=== PATIENT | male | born 1980 | race Caucasian/White ===

== ENCOUNTER 2021-03-05 07:23 | Outpatient (CLI) | payer OTHER ==
[2021-03-05 14:37] LABS: SARS-CoV-2 PCR by NAA Not Detected (NotDetected)
== END 2021-03-05 07:24 | disposition home or self-care (01) ==
LOC: CSHLAB 07:23
PROVIDERS: ATTEND Otolaryngology Otolaryngic Allergy
DX: Z01.818 Encounter for other preprocedural examination (principal); Z20.822 Contact with and (suspected) exposure to COVID-19; G47.33 Obstructive sleep apnea (adult) (pediatric); J30.9 Allergic rhinitis, unspecified
CPT/HCPCS: 87635; 93005; 93010; U0003; U0005

== ENCOUNTER 2021-03-10 06:39 | Day surgery (SDC) | payer OTHER ==
[2021-03-06 14:36] VITALS: BMI 33.0
[2021-03-10] MEDS ORDERED: Lidocaine 1% MPF 2 ML VIAL ONE (07:05)
[2021-03-10] MEDS ORDERED: Oxymetazoline HCl 0.05% ( 15 ML ) ONE (07:24)
[2021-03-10] MEDS ORDERED: Midazolam HCl 2 mg/2 ml Vial ONE (08:26)
[2021-03-10] MEDS ORDERED: PROPOFOL 60 ML ONE (08:26)
== END 2021-03-10 09:30 | disposition home or self-care (01) ==
LOC: CSHSDC 06:39
PROVIDERS: ATTEND Otolaryngology Otolaryngic Allergy
DX: G47.33 Obstructive sleep apnea (adult) (pediatric) (principal); J30.9 Allergic rhinitis, unspecified; I10 Essential (primary) hypertension; Z79.899 Other long term (current) drug therapy
CPT/HCPCS: J2250; J2704